=== PATIENT | female | born 1935 | race Caucasian/White ===

== ENCOUNTER 2024-04-20 13:47 | Emergency (ER) | payer MEDICARE, OTHER, SELFPAY ==
[2024-04-20] VITALS (10 sets, daily range): BP systolic 169–213; BP diastolic 82–107; BMI 29.4
[2024-04-20 15:01] LABS: % Basophils 0.5 % (0-2); % Eosinophils 1.3 % (0-6); % Immature Granulocytes 0.2 % (0-0.5); % Lymphocytes 29.4 % (20.5-51.1); % Monocytes 8.2 % (1.7-9.3); % Neutrophils 60.4 % (42.2-75.2); Absolute Eosinophils 0.1 10^3/uL (0-0.7); Absolute Lymphocytes 1.8 10^3/uL (1.2-3.4); Absolute Monocytes 0.5 10^3/uL (0.1-0.6); Absolute Neutrophils 3.7 10^3/uL (1.4-6.5); Hematocrit 37.1 % (37.0-47.0); Hemoglobin 12.8 g/dL (12.0-16.0); Mean Corp Hgb Conc. 34.5 g/dL (33.0-37.0); Mean Corpuscular Hgb 30.5 pg (27.0-31.0); Mean Corpuscular Volume 88.5 fL (81.0-99.0); Mean Platelet Volume 10.6 fL (7.4-10.4); Nucleated Red Blood Cells % 0 %; Platelet Count 199 10^3/uL (130-400); Red Blood Cell Count 4.19 10^6/uL (4.20-5.40); Red Cell Dist. Width 13.3 % (11.5-14.5); White Blood Cell Count 6.1 10^3/uL (4.8-10.8)
--- NOTE | 2024-04-20 15:11 | ED.GENMED ---
History of Present Illness
General
Chief Complaint: Blood Pressure Problem
Source: patient
Exam Limitations: none
Time Seen by Provider: 04/20/24 15:05
Travel History
Have you had any contact with someone who has COVID-19?: No
Do you have any symptoms of coronavirus? Fever > 100 degrees, chills, cough, shortness of breath, sore throat, loss of taste or smell, muscle aches, or headache?: No
History of Present Illness
History of Present Illness:
See MDM
Past History
Past History
ED Past Medical History: HTN
ED Past Surgical History: None
Social History
Tobacco: Non-smoker
Alcohol: None
Phy Exam
Physical Exam
Physical Exam:
See MDM
Course
Orders/Labs/Results
Orders:
Orders
04/20/24 14:42
CMP [Comprehensive Metabolic Panel] Urgent
Complete Blood Count/With Diff Urgent
04/20/24 15:11
0.9% Sodium Chloride 1000 ml [Nss] 1,000 ml IV BOLUS
04/20/24 17:33
Labetalol HCl [Trandate] 10 mg IV NOW STA
Abnormal Lab Results
04/20/24
14:42
RBC 4.19 L 10^6/uL
(4.20-5.40)
MPV 10.6 H fL
(7.4-10.4)
BUN 35 H mg/dl
(7-17)
Creatinine 1.1 H mg/dL
(0.6-1.0)
04/20/24 14:42
04/20/24 14:42
Vital Signs
Initial and Last Documented VS:
Initial Vital Signs
Temp Pulse Resp BP Pulse Ox
97 F 79 20 196/107 97
04/20/24 13:48 04/20/24 13:48 04/20/24 13:48 04/20/24 13:48 04/20/24 13:48
Last Documented Vital Signs
Temp Pulse Resp BP Pulse Ox
97 F 79 20 169/89 99
04/20/24 13:48 04/20/24 18:45 04/20/24 18:45 04/20/24 18:30 04/20/24 17:30
MDM/Problems Addressed
Differential Diagnosis Includes:
HPI and MDM Narrative:
89-year-old female presenting with elevated blood pressure. Patient noted that her blood pressure was high when she was taking it at [facility]. There was questionable slurred speech when she called her son but patient denies this. On exam, patient
denies any complaint. She is sitting in bed comfortably and in no acute distress. I did discuss her dry mucous membranes. Patient does state that she feels thirsty. She is compliant with hydrochlorothiazide 25 mg daily and Lotensin 20 mg daily.
Patient has no focal neurodeficits. She is ambulating to the bathroom on her own without difficulty. Will obtain basic blood work and continue to monitor. Will recheck blood work after IV fluids
Physical exam
General: Well appearing and non-toxic
HEENT: protecting airway. Dry mucous membranes
Neck: appears supple
CV: No evidence of cyanosis. Regular rate and rhythm
Resp: No accessory muscle use
Abd: Non-distended
Extremities: No deformities
Neuro: alert. No focal deficits. Ambulating without difficulty
Psych: Normal affect
Skin: Intact
Problems Addressed including Acute and Chronic Conditions affecting care:
1. Asymptomatic hypertension
Acuity: acute
Prognosis: stable
Details: Will obtain basic blood work to rule out evidence of endorgan damage. She is well-appearing nontoxic and without complaint. Will consider increasing Lotensin
Updates
Blood pressure remains elevated after IV fluids. Patient remains well-appearing and nontoxic and denies any symptoms. Will give dose of IV labetalol. Family at bedside. We discussed increasing her Lotensin to 40 mg a day. It is not currently on
formulary here. I discussed going home and taking 20 mg before she was bed and starting her new regimen tomorrow. She states her blood pressure 2 weeks ago was 180s over 90s. At that time, they were blaming it on anxiety. I discussed that could
be real and see needs to follow with her doctor this week for blood pressure reevaluation
Differential Diagnosis (but not limited to): Hypertension emergency, dehydration, acute kidney injury
Testing considered: CT head but she has no acute neurodeficit
Drug therapy (if applicable): OTC meds, please see d/c instruction regarding Rx drugs
Amount and/or Complexity of Data Reviewed
Clinical info obtained from: Patient
External data reviewed: N/A
Labs I independently reviewed (but not limited to): Mild elevation in creatinine and BUN
Radiology: N/A
Pulse Ox: not hypoxic
EKG independently reviewed: N/A
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
Critical Care: N/A
Risk of Complication:
Social Determinants of health: Good social support
Discussed with other providers: N/A
Escalation of Care includes Admit/Obs: After being observed in the Emergency Department, pt stable for discharge.
Occasional wrong word or 'sound a like' substitutions may have occurred due to the inherent limitations of voice recognition software. Read the chart carefully and recognize, using context, where substitutions have occurred.
*Critical Care Note
Total Time (30-74mins, 75-104mins- exclusive of procedures): Not Applicable
ED Attending Note
-
Portions of this chart may have been created with voice recognition software.� Occasional wrong word or��sound alike� substitutions may have occurred due to the inherent limitations of voice recognition software.
Discharge Plan
Departure
Patient Disposition: Home (Routine Discharge)
Date of Disposition: 04/20/24
Time of Disposition: 18:24
Patient with high blood pressure during this ER visit?: Yes
Discharge Problem:
Hypertension, Acute dehydration
Instructions: BLOOD PRESSURE
Referrals:
Sylwia Yu PA-C [Family Provider] -
Activity Restrictions/Additional Instructions:
Your blood pressure was elevated today. When you go home tonight, take an extra dose of benazepril. Tomorrow, please start doubling your benazepril. Do not make any changes to your hydrochlorothiazide. You must call your primary care doctor
first thing tomorrow for blood pressure reevaluation within the next several days. Please let them know that we made changes to your blood pressure regimen.
Please return for any worsening symptoms.
You may return at any time if you have further concerns.
Thank you for choosing [facility].
Interventions
Interventions:
*Risk Screen - Suicide Last Done: 04/20/24 13:48
*General Assessment Last Done: 04/20/24 13:48
*Neglect/Abuse Screening Last Done: 04/20/24 13:48
ED- Fall Risk Assessment Last Done: 04/20/24 14:20
*ED COVID-19 Vaccine History Last Done: 04/20/24 14:20
*Nursing Disposition Last Done: 04/20/24 19:20
ED- Cardiac Assessment Last Done: 04/20/24 14:20
ED- Neurological Assessment Last Done: 04/20/24 14:20
ED-Psychological Assessment Last Done: 04/20/24 19:20
ED- Pulmonary Assessment Last Done: 04/20/24 14:20
ED Swallowing Screen Last Done: 04/20/24 14:20
Discharge Date and Time
Discharge Date/Time: 04/20/24 19:20
Print Language: CENTRAL AFRICAN
[2024-04-20 15:14] LABS: ALT (SGPT) 14 U/L (0-35); AST (SGOT) 24 U/L (14-36); Albumin 4.1 g/dl (3.5-5.0); Alkaline Phosphatase 77 U/L (38-126); Blood Urea Nitrogen 35 mg/dl (7-17); Calcium 9.9 mg/dl (8.4-10.2); Carbon Dioxide 25 mmol/L (22-30); Chloride 105 mmol/L (98-107); Estimated Creatinine Clearance 34 ml/min; Glucose 96 mg/dl (70-99); Sodium 138 mmol/L (135-145); Total Bilirubin 0.7 mg/dl (0.2-1.3); Total Protein 6.7 g/dl (6.3-8.2); eGFR 48.03
[2024-04-20] MEDS: NSS 1000 IV (16:16)
[2024-04-20] MEDS: TRANDATE 10 MG IV (17:47)
== END 2024-04-20 19:20 | disposition home or self-care (01) ==
LOC: EMR 13:47
PROVIDERS: Emergency Medicine; EMERGENCY PHYSICIAN Student in an Organized Health Care Education/Training Program; FAMILY PHYSICIAN Physician Assistant Medical
DX: E86.0 Dehydration (principal); I10 Essential (primary) hypertension; Z88.2 Allergy status to sulfonamides
CPT/HCPCS: 99284; 96374; 96361; 80053; 85025